=== PATIENT | male | born 1965 | race Asian ===

== ENCOUNTER 2020-06-03 11:28 | Inpatient (IN) | payer MEDICAID, OTHER ==
[~2020-06-03] VITALS: Ht 186.7 cm; Wt 60.3 kg
[2020-06-03] MEDS ORDERED: SODIUM CHLORIDE 0.9% 1,000 ML IV ONE ×2 (12:27→15:58)
[2020-06-03] MEDS ORDERED: ACETAMINOPHEN 325MG TABLET PO ONE (13:00)
[2020-06-03 13:01] LABS: HEMATOCRIT. 31.8 % (42.0-52.0); HEMOGLOBIN. 10.3 g/dL (14.0-18.0); MEAN CORPUSCULAR HEMOGLOBIN 26.3 pg (28.0-32.0); MEAN CORPUSCULAR VOLUME 80.8 fL (80.0-94.0); MEAN PLATELET VOLUME 6.5 fl (7.4-10.4); PLATELET 297 x1000/uL (130-400); RED BLOOD CELL COUNT 3.93 mill/uL (4.7-6.1)
[2020-06-03 13:07] LABS: CHLORIDE 96 mEq/L (98-107)
[2020-06-03 13:11] LABS: ETHANOL BLOOD < 10 mg/dL
[2020-06-03] MEDS ORDERED: POTASSIUM CHLORIDE INJ 40 MEQ in DEXT 5% WATER 500 ML IV ONE (13:45)
[2020-06-03] MEDS ORDERED: POTASSIUM CHLORIDE 20MEQ TABLET SR PO ONE (13:45)
[2020-06-03 13:51] LABS: PLATELET ESTIMATE NORMAL
[2020-06-03] MEDS ORDERED: PIPERACILLIN/TAZ 3.375G PREMIX 50 ML IV ONE (16:00)
[2020-06-03] MEDS ORDERED: VANCOMYCIN 1 G PREMIX 200 ML IV ONE (16:00)
[2020-06-03] MEDS: SODIUM CHLORIDE 0.9% 1,000 ML IV SCH (19:55)
[2020-06-03] MEDS ORDERED: ACETAMINOPHEN 325MG TABLET PO PRN ×2 (20:00)
[2020-06-03] MEDS ORDERED: ONDANSETRON HCL 4MG/2ML INJ IV PRN (20:00)
[2020-06-03] MEDS ORDERED: HYDROMORPHONE HCL/PF 2MG/ML CPJ IV PRN (20:00)
[2020-06-03] MEDS ORDERED: HYDROCODONE/ACETAMINOPHEN 5/325MG TABLET PO PRN (20:00)
[2020-06-03] MEDS ORDERED: DOCUSATE SODIUM 100MG CAPSULE PO PRN (20:00)
[2020-06-03] MEDS ORDERED: GUAIFENESIN 200MG/10ML SUGAR FREE UDC PO PRN (20:00)
[2020-06-03] MEDS ORDERED: LORAZEPAM 0.5MG TABLET PO PRN (20:00)
[2020-06-04] MEDS ORDERED: PIPERACILLIN/TAZ 3.375G PREMIX 50 ML IV SCH
[2020-06-04] MEDS ORDERED: PIPERACILLIN/TAZOBACTAM 3.375 G in DEXT 5% WATER 100 ML IV SCH (01:00)
[2020-06-04] MEDS ORDERED: VANCOMYCIN 750 MG PREMIX 150 ML IV SCH (02:00)
[2020-06-04 05:00] VITALS: BP 145/85
[2020-06-04] MEDS: PIPERACILLIN/TAZOBACTAM 3.375 G in DEXT 5% WATER 100 ML IV SCH ×4 (05:29→23:14)
[2020-06-04 06:42] VITALS: BP 145/85
[2020-06-04] MEDS: VANCOMYCIN 750 MG PREMIX 150 ML IV SCH ×3 (07:05→22:27)
[2020-06-04 08:00] VITALS: BP 124/76
[2020-06-04] MEDS ORDERED: THIAMINE HCL 100MG TABLET PO SCH (09:00)
[2020-06-04] MEDS: SODIUM CHLORIDE 0.9% 1,000 ML IV SCH ×2 (09:18→22:21)
[2020-06-04 09:19] LABS: CHLORIDE 102 mEq/L (98-107)
[2020-06-04 10:05] LABS: BASOPHILS % 0.4 % (0.0-2.0); EOSINOPHILS % 0.4 % (0.0-5.0); HEMATOCRIT. 30.5 % (42.0-52.0); HEMOGLOBIN. 10.1 g/dL (14.0-18.0); LYMPHOCYTES % 20.3 % (20.0-50.0); MEAN CORPUSCULAR HEMOGLOBIN 26.6 pg (28.0-32.0); MEAN CORPUSCULAR VOLUME 80.4 fL (80.0-94.0); MEAN PLATELET VOLUME 6.9 fl (7.4-10.4); MONOCYTES % 11.2 % (2.0-8.0); NEUTROPHILS % 67.7 % (40.0-76.0); PLATELET 208 x1000/uL (130-400); RED BLOOD CELL COUNT 3.79 mill/uL (4.7-6.1); RED CELL DISTRIBUTION WIDTH 17.1 % (11.6-14.6)
[2020-06-04 12:00] VITALS: BP 106/76
[2020-06-04] MEDS ORDERED: POTASSIUM CHLORIDE 20MEQ TABLET SR PO NR (13:47)
[2020-06-04 16:00] VITALS: BP 124/79
[2020-06-04 20:00] VITALS: BP 121/83
[2020-06-05 04:00] VITALS: BP 130/79
[2020-06-05] MEDS: PIPERACILLIN/TAZOBACTAM 3.375 G in DEXT 5% WATER 100 ML IV SCH ×2 (05:06→13:04)
[2020-06-05 05:12] LABS: CHLORIDE 103 mEq/L (98-107)
[2020-06-05 05:21] LABS: VANCOMYCIN TROUGH 13.4 ug/mL (5.0-10.0)
[2020-06-05 05:23] LABS: TOTAL IRON BINDING CAPACITY 96 ug/dL (250-450)
[2020-06-05 05:39] LABS: BASOPHILS % 0.4 % (0.0-2.0); EOSINOPHILS % 0.7 % (0.0-5.0); HEMATOCRIT. 29.1 % (42.0-52.0); HEMOGLOBIN. 9.5 g/dL (14.0-18.0); LYMPHOCYTES % 17.8 % (20.0-50.0); MEAN CORPUSCULAR HEMOGLOBIN 26.2 pg (28.0-32.0); MEAN CORPUSCULAR VOLUME 80.1 fL (80.0-94.0); MEAN PLATELET VOLUME 6.6 fl (7.4-10.4); MONOCYTES % 11.9 % (2.0-8.0); NEUTROPHILS % 69.2 % (40.0-76.0); PLATELET 246 x1000/uL (130-400); RED BLOOD CELL COUNT 3.63 mill/uL (4.7-6.1); RED CELL DISTRIBUTION WIDTH 17.4 % (11.6-14.6)
[2020-06-05 08:00] VITALS: BP 124/89
[2020-06-05] MEDS ORDERED: FOLI-43 MT (10:24)
[2020-06-05] MEDS ORDERED: FERR-71 MT (10:24)
[2020-06-05 12:00] VITALS: BP 126/89
[2020-06-05 13:52] VITALS: BP 126/89
[2020-06-05 16:00] VITALS: BP 95/48
[2020-06-06 05:08] LABS: HIV SCREEN 4G Non Reactive (Non Reactive)
== END 2020-06-05 17:05 | disposition short-term general hospital (02) | DRG 720 ==
LOC: ER 11:28 → EDBEDREQTM 18:59 → EDBEDREQ 18:59 → ENRESERV 20:31 → CANRESERV 20:31 → EDBEDREQTM 21:18 → EDBEDREQSVC 21:18 → ENRESERV 21:20 → CANRESERV 21:20 → MICUSO 23:53 → 7WST 06-04 04:24 → 5WST 06-04 23:28
PROVIDERS: ADMIT Internal Medicine; ATTEND Internal Medicine
DX: A41.9 Sepsis, unspecified organism (principal); E43 Unspecified severe protein-calorie malnutrition; E87.6 Hypokalemia; D72.810 Lymphocytopenia; D64.9 Anemia, unspecified; Z20.828 Contact with and (suspected) exposure to other viral communicable diseases; B34.9 Viral infection, unspecified; Z79.899 Other long term (current) drug therapy
CPT/HCPCS: 36415; 71045; 80048; 80053; 80202; 80307; 80320; 80329; 82607; 82728; 82746; 83540; 83550; 84145; 85025; 87389; 93005; 96365; 99285; J2543; J3370; J3480; J7030; J7060; G0480; U0003-CS